=== PATIENT | male | born 1970 | race African-American/Black ===

== ENCOUNTER 2016-11-20 04:50 | Emergency (ER) | payer OTHER ==
--- NOTE | ~2016-11-20 | CT4 ---
[facility] A Service of [facility] RADIOLOGY TEXT RESULTS PATIENT: KANDACE DOE LOCATION: [facility] : 74 UNIT #: [id number] AGE: [address]: Ben Padilla MD SEX: M ORDER DR: [id number] [facility] [address] [place], [place] [address] [id number] E MR#: [id number] #: [id number] NAME: KANDACE DOE : 1970 SEX: M STUDY DATE/TIME: 11/20/2016 6:51 UNIT: [facility] ROOM: STUDY DESCRIPTION: CT Abd and Pelv Wo Cont Attending Physician: Ben Padilla M.D. Ordering Physician: Shena Bowens M.D. Primary Care Physician: Levi Samson M.D. MEDICAL IMAGING REPORT This report is preliminary unless electronic signature is present EXAM CT abdomen and pelvis without IV contrast COMPARISON October 17, 2011. CT chest dated October 18, 2011. INDICATIONS 46-year-old male with left-sided abdominal pain since yesterday. History of sarcoidosis. FINDINGS Axial CT imaging of the abdomen and pelvis was performed without IV contrast. Lack of IV contrast limits evaluation of adenopathy, vasculature and viscera. Coronal and sagittal reformats were constructed. This CT exam was performed with one or more of the following radiation dose reduction techniques: automatic exposure control, adjustment of mA and/or kV according to patient size, and iterative reconstruction. FINDINGS There is a moderate-sized fat-containing umbilical hernia. No acute fractures or suspicious osseous lesions. Minimal dependent atelectasis in both lung bases. There are multiple nodular densities within the visualized lungs, largest which measures up to approximately 8 mm. Some of these are pleural-based could conceivably represent rounded atelectasis. There is a ground-glass nodule in the right middle lobe measuring up to 6 mm. The patient previously had multiple pulmonary nodules in October 2011 and has known history of sarcoidosis. Liver, gallbladder, pancreas, spleen and adrenal glands are unremarkable. There is a splenule. Right kidney is normal. No right hydronephrosis or hydroureter. Urinary bladder is unremarkable. There is marked edema of STS. [facility] A Service of [facility] RADIOLOGY TEXT RESULTS PATIENT: KANDACE DOE LOCATION: [facility] : 74 UNIT #: [id number] AGE: [address]: Ben Padilla MD SEX: M ORDER DR: the left kidney and there is diffuse but mild left periureteral stranding and left perinephric stranding. No renal or ureteral calculus is seen. No calculus seen within the urinary bladder or visualized urethra. There is minimal calcification of the prostate gland, nonspecific, perhaps reflecting remote prostatitis. There are scattered left colonic diverticula without evidence of acute diverticulitis. Appendix is normal. Normal caliber of the abdominal aorta. There is portocaval lymph node measuring up to 1.7 cm, actually diminished in size from October 2011 and likely reactive, perhaps sequela of the patient's known sarcoidosis. There are scattered gastrohepatic space lymph nodes which are subcentimeter in size and again likely reactive or possibly reflecting sequela of sarcoidosis. No free fluid in the abdomen and pelvis. No evidence of pneumoperitoneum. No bowel obstruction. IMPRESSION 1. Marked edema of the left kidney with left perinephric stranding and left periureteral stranding. There is no evidence of obstructing ureteral calculus and there is no calculus seen within the urinary bladder, visualized urethra. Findings would seem to reflect an ascending pyelitis with left pyelonephritis. Clinical correlation recommended. 2. Diverticulosis without evidence of acute diverticulitis. 3. Mild portocaval adenopathy, actually diminished from 2011 and likely reactive, possibly sequela of patient's known sarcoidosis. 4. Multiple pulmonary nodules, largest which measures up to 8 mm. It is difficult to definitively state if they are stable given multiple nodules seen previously and some consolidation seen from 2011. Findings may reflect sequela of the patient's known sarcoidosis. Imaging followup is recommended as clinically indicated. Dictated by... Shay Alfaro M.D. THIS IS AN ELECTRONICALLY VERIFIED REPORT Shay Alfaro M.D. at 11/25/2016 9:04 PM BLM/pcl TD: 11/20/2016 10:29 JOB #: [id number] MEDICAL IMAGING REPORT Page 1 of 1 COPY
[~2016-11-20 04:50] MED LIST: COMBIVENT INH14.7 G1 IH; HYDROCODON-ACE1 EAC7 PO; LORTAB 7.51 TAB 7.5/ PO; PEPCID PO; PHENERGAN25 MG PO; PREDNISONE10 MG PO; PRILOSEC20 M1 PO; PRILOSEC40 MG PO; PROTONIX PO; SYMBICORT INH; TYLENOL325 M1 PO
[2016-11-20 05:37] LABS: BASOPHIL% 0.2 % (0-2.5); EOSINOPHIL# 0.1 X10e3 (0-0.7); EOSINOPHIL% 1.6 % (0.0-7.0); HEMATOCRIT 43.8 % (38.0-50.0); LYMPHOCYTE% 29.8 % (17.0-45.0); MEAN CELL VOLUME 78.4 FL (83-96); MEAN CORPUSCULAR HGB CONC 31.9 g/dL (30-36); MEAN PLATELET VOLUME 7.9 FL (6.5-11.5); MONOCYTE# 0.7 X10e3 (0-1.0); MONOCYTE% 11.2 % (3.0-12.0); NEUTROPHIL# 3.7 X10e3 (1.5-7.1); NEUTROPHIL% 57.2 % (40-75); PLATELET COUNT 188 X10e3 (140-420); RED BLOOD COUNT 5.59 X10e (3.90-5.60); RED CELL DISTRIBUTION WIDTH 16.2 % (11.0-15.5); WHITE BLOOD COUNT 6.5 X10e3 (4.0-10.5)
[2016-11-20 05:38] LABS: DIFF IND NO
[2016-11-20 06:07] LABS: ALBUMIN SERUM 3.8 g/dL (3.5-5.0); ALKALINE PHOSPHATASE 87 U/L (32-92); ALT (SGPT) 21 U/L (10-40); AST (SGOT) 20 U/L (10-42); BILIRUBIN,TOTAL 0.4 mg/dL (0.2-2.0); BLOOD UREA NITROGEN 15 mg/dL (9-23); BUN/CREATININE RATIO 8.82; CALCIUM SERUM 8.8 mg/dL (8.4-10.2); CARBON DIOXIDE 25 mmol/L (22-31); CHLORIDE 104 mmol/L (100-111); CREATININE SERUM 1.7 mg/dL (0.6-1.4); GLOM FILT RATE Estimated 55.6 mL/min (>60); GLUCOSE FASTING 146 mg/dL (70-110); POTASSIUM 3.5 mmol/L (3.5-5.1); PROTEIN TOTAL SERUM 7.6 g/dL (6.0-8.3); SODIUM 135 mmol/L (135-145)
[2016-11-20 06:09] LABS: BILIRUBIN, DIRECT <0.1 mg/dL (0.0-0.2); BILIRUBIN,INDIRECT 0.3 mg/dL (0.0-0.9)
[2016-11-20 09:05] LABS: URINE SOURCE CLEAN CATCH
[2016-11-20 09:11] LABS: URINE APPEARANCE CLEAR; URINE BILIRUBIN NEG (NEG); URINE BLOOD 1+ (NEG); URINE COLOR YELLOW; URINE GLUCOSE NEG (NEG); URINE KETONE NEG (NEG); URINE LEUKOCYTE ESTERASE NEG (NEG); URINE NITRATE NEG (NEG); URINE PH 7.5 (5-8); URINE PROTEIN NEG (NEG); URINE SPECIFIC GRAVITY 1.006 (1.003-1.035); URINE UROBILINOGEN 0.2 MG/DL (NEG)
[2016-11-20 09:14] LABS: URINE BACTERIA AUWI NEG (NEGATIVE); URINE SQUAMOUS EPITHELIAL CELL NONE SEEN /[HPF]; UWBCS1 AUWI 0-2 (0-5)
[2016-11-20 09:20] LABS: CULTURE INDICATED? NO
== END 2016-11-20 10:27 | disposition home or self-care (01) ==
LOC: CED 04:50
PROVIDERS: Emergency Medicine
DX: R10.9 Unspecified abdominal pain (principal); K21.9 Gastro-esophageal reflux disease without esophagitis; J45.909 Unspecified asthma, uncomplicated; F17.200 Nicotine dependence, unspecified, uncomplicated
CPT/HCPCS: 36415; 74176; 80048; 80076; 81003; 85025; 96361; 96365; 96375; 96376; 99284; J0696; J1170; J1885; J2405